=== PATIENT | male | born 1930 | race African-American/Black ===

== ENCOUNTER 2018-01-17 10:38 | Observation (INO) ==
[2018-01-17] MEDS ORDERED: Aspirin 81 MG TAB.CHEW PO ONE (11:12)
[2018-01-17] MEDS ORDERED: GI Cocktail 40 ML EACH PO ONE (11:12)
--- NOTE | 2018-01-17 11:44 | Emergency Department Note ---
Disposition Clinical Impression: Chest pressure, Dyspnea, Hypertensive urgency Disposition: Admitted As Inpatient Condition: Fair Referrals: Christy Cotto, POST OFFICE CLERK [Primary Care Provider] - Forms: ED Satisfaction Letter Time of Disposition: 12:41 (OBSV) SOB HPI - General Chief Complaint: ED Shortness of Breath/Dyspnea Stated Complaint: SOB Time Seen by Provider: 01/17/18 10:43 Source: patient Mode of arrival: ambulatory Limitations: no limitations Nursing Notes Reviewed: Yes Vital Signs Reviewed: Yes - History of Present Illness 87-year-old -Prydeinig male who presents to the emergency room his had increasing shortness of breath. He has had no blurred vision double vision or loss of vision patient's times feels like he is choking on things thinks maybe gastrointestinal reflux patient denies any calf pain swelling edema noted he denies any rashes or lesions he denies numbness tingling weakness nothing makes it better nothing makes it worse she denies though any diaphoresis or radiation up into the neck or chest when these events occur patient does not feel like he is smothering or drowning in his had no recent weight gain Pt Subjective Complaint: shortness of breath Onset (ago): Just WOUND NURSE Severity: mild, now resolved Consistency/Duration: intermittent, now resolved Improves with: nothing Worsens with: nothing Associated symptoms: Reports: orthopnea. Denies: chest pain, pain with inspiration, fever, cough, wheezing, sputum production, lower extremity pain, polyuria, polydipsia, parasthesias, palpitations, hemoptysis, diaphoresis, nausea/vomiting, syncope, abdominal pain, sense of impending doom Treatment prior to arrival: none Cough present: No Sputum production: No - Related Data Home Medications Medication Instructions Recorded Confirmed Propranolol HCl 40 mg PO TID 09/01/16 01/08/17 Ranitidine HCl [Acid Metal Molder] 150 mg PO HS 09/01/16 01/08/17 Aspirin [Lo-Dose Aspirin EC] 81 mg PO DAILY 01/17/18 01/17/18 Allergies Allergy/AdvReac Type Severity Reaction Status Date / Time No Known Allergies Allergy Verified 01/08/17 11:46 All systems ED: reviewed and negative except as stated. Review of Systems: As Per HPI Constitutional: Denies: fever, chills, weakness Eyes: Denies: eye pain, eye discharge ENT ED: Denies: ear pain, throat pain, dental pain Cardiovascular: Reports: dyspnea on exertion. Denies: chest pain, palpitations , syncope Respiratory: Reports: dyspnea. Denies: wheezes Gastrointestinal: Denies: abdominal pain, nausea, vomiting Genitourinary: Denies: urgency, dysuria, genital lesions Musculoskeletal: Denies: back pain, neck pain Integumentary: Denies: rash, abrasion Neurological: Denies: headache Psychiatric: Denies: anxiety Endocrine: Denies: fatigue Hematological/Lymphatic: Denies: easy bleeding Allergic/Immunologic: Denies: facial swelling Past Medical History - Past Medical History Attestation: Yes The following information was validated with the patient. Source: patient, old records reviewed, nursing notes reviewed Medical history: Reports: arthritis, hyperlipidemia, hypertension, renal disease Psychiatric history: Reports: no psych history - Social History Smoking Status: Never smoker Smokeless Tobacco Status: No Alcohol use: Reports: none Drug use: Reports: none Physical Exam - General Limitations: no limitations General appearance: alert, in no apparent distress - Head Head exam: atraumatic, normocephalic, normal inspection - Eye Eye exam: Present: normal appearance, PERRL, EOMI, other (Swollen duct medial left eye) - ENT ENT exam: normal exam, normal oropharynx, mucous membranes moist, TM's normal bilaterally, normal external ear exam - Neck Neck exam: Present: normal inspection, full ROM, trachea midline. Absent: tenderness, meningismus, lymphadenopathy - Chest Chest inspection: Present: normal inspection, symmetric chest wall rise - Respiratory Respiratory exam: Present: normal lung sounds bilaterally. Absent: wheezes, prolonged expiratory phase - Cardiovascular Cardiovascular exam: Present: regular rate, normal rhythm, normal heart sounds - Abdominal Exam Abdominal exam: Present: soft, Non-Tender, normal bowel sounds. Absent: mass, pulsatile mass - Expanded Upper Extremity Exam Shoulder exam: Present: normal inspection, full ROM Arm exam: Present: normal inspection, full ROM Elbow exam: Present: normal inspection, full ROM Forearm/Wrist exam: Present: normal inspection, full ROM Hand exam: Present: normal inspection, full ROM Vascular exam: Normal: capillary refill, radial pulse - Expanded Lower Extremity Exam Hip/Pelvis exam: Present: normal inspection, full ROM Upper leg exam: Present: normal inspection, full ROM Knee exam: Present: normal inspection, full ROM Lower leg exam: Present: normal inspection, full ROM Ankle exam: Present: normal inspection, full ROM Foot/toe exam: Present: normal inspection, full ROM Neurovascular/Tendon exam: Present: normal capillary refill, normal fine/light touch. Absent: motor deficit, sensory deficit, tendon deficit Gait: observed and normal - Back Exam Back exam: Present: normal inspection, full ROM. Absent: muscle spasm - Neurological Exam Neurological exam: Present: alert, oriented X3, CN II-XII intact, normal gait - Psychiatric Psychiatric exam: Present: normal affect, normal mood - Skin Skin exam: Present: warm, dry, intact, normal color Course Course Narrative: Patient seen and examined the GI cocktail and aspirin awaiting laboratory results chest x-ray is been reviewed EKGs been reviewed - Reevaluation(s) Reevaluation #1: Patient received a GI cocktail on Catapres for his blood pressure patient is resting comfortably at this time and grandson at the bed I did talk to Dr. Sims about observation status for serial enzyme rule out at the request Dr. Sims I did speak to the patient about having to wait for possible stress test they understand and they were okay with this plan if that he needs to be transferred for a heart catheter during the course of the evening and if the enzymes started to go up he was comfortable with this plan also patient be admitted for observation status here Vital Signs Temperature 97.9 F 01/17/18 10:47 Pulse Rate 59 01/17/18 10:47 Respiratory Rate 18 01/17/18 10:47 Blood Pressure 181/91 01/17/18 10:47 O2 Sat by Pulse Oximetry 99 01/17/18 10:47 Temperature 97.9 F 01/17/18 10:47 Pulse Rate 57 01/17/18 11:55 Respiratory Rate 16 01/17/18 11:55 Blood Pressure 177/90 01/17/18 11:55 O2 Sat by Pulse Oximetry 99 01/17/18 10:47 Oxygen Delivery Oxygen Delivery Room Air Shortness of Breath/Dyspnea - Differential Diagnosis Likely: acute exacerbation of chronic obstructive airways disease, congestive heart failure - Medical Records Medical records reviewed: Yes I reviewed the patient's medical records. - Lab Data Lab results reviewed: Yes I reviewed the patient's lab results. Result diagrams: 01/17/18 11:00 01/17/18 11:00 Lab Results 05/18/18 05/18/18 05/18/18 Range/Units 11:00 11:00 11:00 WBC 7.2 (4.3-11.1) K/mcL RBC 5.86 H (4.19-5.50) M/mcL Hgb 17.0 H (12.9-16.9) g/dL Hct 49.2 (37.5-50.1) % MCV 84.0 (83.0-100.0) fL MCH 29.0 (28.0-33.3) pg MCHC 34.6 (31.6-35.5) g/dL RDW 13.6 (11.5-14.5) % Plt Count 160 (140-400) K/mcL MPV 9.2 L (9.4-12.4) fL Immature Gran % 0.4 (0-4) % Seg Neutrophils % 58.2 % Lymphocytes % 30.0 % Monocytes % 7.1 % Eosinophils % 3.3 % Basophils % 1.0 % Neutrophils # 4.2 (1.6-8.9) K/mcL Lymphocytes # 2.2 (0.6-4.6) K/mcL Monocytes # 0.5 (0.0-1.3) K/mcL Eosinophils # 0.2 (0.0-0.6) K/mcL Basophils # 0.1 (0.0-0.2) K/mcL PT 12.2 H (9.4-12.1) Seconds INR 1.1 APTT 32.8 (26.0-36.0) Seconds D-Dimer < 211 (0-500) ng/mLFEU Sodium 137 (136-145) mEq/L Potassium 4.1 (3.5-5.1) mEq/L Chloride 99 (98-107) mEq/L Carbon Dioxide 29 (23-29) mEq/L BUN 11 (8-23) mg/dL Creatinine 1.30 (0.70-1.30) mg/dL Est GFR ( Amer) > 60 (> 60) Est GFR (Non-Af Amer) 52 L (> 60) BUN/Creatinine Ratio 8 (6-26) Glucose 83 (70-105) mg/dL Calculated Osmolality 283 (280-300) Calcium 9.9 (8.6-10.3) mg/dL Troponin I < 0.03 (< 0.04) ng/mL - Radiology Data Radiology results reviewed: Yes I reviewed the patient's radiology results. ITS Impressions Chest X-Ray 01/17/18 11:11 IMPRESSION: 1. No active pulmonary disease. D/ / Geo Osborn MD / Geo Osborn MD Interpreting Provider: Geo Osborn MD - EKG Data EKG attestation: Yes I reviewed and interpreted this EKG. EKG results narrative: Sinus bradycardia first-degree AV block rate 59 FL 3/16 progress 90 QT 398 access -49 Critical Care Time Critical Care Time: No
[2018-01-17 11:45] LABS: BUN/Creatinine Ratio 8 (6-26); Blood Urea Nitrogen 11 mg/dL (8-23); Calcium 9.9 mg/dL (8.6-10.3); Carbon Dioxide 29 mEq/L (23-29); Chloride 99 mEq/L (98-107); Glucose 83 mg/dL (70-105); Osmolality,Calculated 283 (280-300); Potassium 4.1 mEq/L (3.5-5.1); Sodium 137 mEq/L (136-145); eGFR For African Americans > 60 (> 60); eGFR For Non-African Americans 52 (> 60)
[2018-01-17 11:50] LABS: Basophils # 0.1 K/mcL (0.0-0.2); Eosinophils # 0.2 K/mcL (0.0-0.6); Eosinophils % 3.3 %; Hematocrit 49.2 % (37.5-50.1); Immature Granulocytes % 0.4 % (0-4); Lymphocytes # 2.2 K/mcL (0.6-4.6); Mean Corpuscular HGB Conc 34.6 g/dL (31.6-35.5); Mean Platelet Volume 9.2 fL (9.4-12.4); Monocytes # 0.5 K/mcL (0.0-1.3); Monocytes % 7.1 %; Neutrophils # 4.2 K/mcL (1.6-8.9); Platelet Count 160 K/mcL (140-400); Red Blood Count 5.86 M/mcL (4.19-5.50); Red Cell Distribution Width 13.6 % (11.5-14.5); Segmented Neutrophils % 58.2 %
[2018-01-17 11:52] LABS: INR 1.1; Prothrombin Time 12.2 Seconds (9.4-12.1); Troponin I < 0.03 ng/mL (< 0.04)
[2018-01-17 11:55] LABS: Activated Partial Thrombo Time 32.8 Seconds (26.0-36.0); D-Dimer < 211 ng/mLFEU (0-500)
[2018-01-17] MEDS ORDERED: cloNIDine HCl 0.1 MG TABLET PO STA (12:21)
--- NOTE | 2018-01-17 12:40 | Internal Med History&Physical ---
Date of Encounter: 01/17/18 Time of Encounter: 13:30 Assessment and Plan (1) Chest pressure Current visit: Yes Status: Acute Discussed he needs a stress test he is aware that we cannot get it here as an inpatient prior authorization as an outpatient in the office is already been started. Also an outpatient referral to cardiology has been initiated to the office chart. Both him and his understand the time length it takes to get these done as an outpatient. They are agreeable to stay here and do these tests on an outpatient basis as long as his troponins are negative. (2) HTN (hypertension) Current visit: Yes Status: Acute He is currently on propranolol that will be continued the ER started clonidine and that did bring down his blood pressure will continue to follow and make adjustments as necessary Qualifiers: Hypertension type: essential hypertension Qualified Code(s): I10 - Essential (primary) hypertension (3) Hyperlipidemia, mixed Current visit: Yes Status: Acute He has not been able to tolerate statins in the past due to muscle pain. (4) GERD (gastroesophageal reflux disease) Current visit: Yes Status: Acute He was given a prescription show an for Zantac he did not take it because it made him feel sick. We will give him a PPI on the past but has not been taking it. Qualifiers: Esophagitis presence: esophagitis presence not specified Qualified Code(s) : K21.9 - Gastro-esophageal reflux disease without esophagitis (5) Renal insufficiency Current visit: Yes Status: Acute Is to be at his baseline He is aware that his kidney function is abnormal. Discussed With him and his (6) Dyspnea Current visit: Yes Status: Acute His chest x-ray is normal we will cycle cardiac enzymes discussed need for a stress test he is aware that I am not able to get a stress test while he is here [place] the orders have been started as an outpatient to get him a non- exercise stress test. As an outpatient we did set him up with cardiology as well. Follow the enzymes and see what it shows. Qualifiers: Dyspnea type: shortness of breath Qualified Code(s): R06.02 - Shortness of breath; R06.00 - Dyspnea, unspecified; R06.01 - Orthopnea (7) Hypertensive urgency Current visit: Yes Status: Acute The ER added clonidine to his home propranolol and that is bring in his blood pressure down. (8) DVT prophylaxis Current visit: Yes Status: Acute Lovenox subcutaneous Internal Medicine - H&P: HPI Chief complaint: sob,chest pressure Admitted From: Home History of present illness: Mr. Lazo is a 87 year old male With a past medical history of uncontrolled hypertension hyperlipidemia and renal insufficiency who presents to the emergency room with chest pain pressure and shortness of breath. He has had some problems with chest pressure with jogging, then chest pressure with walking[place] has not been able to do that for the past 3 weeks due to his chest pain and shortness of breath. This morning his pressure got worse he had elevated blood pressure he was short of breath and that brought him into the emergency room. He currently is chest pain-free he currently is not short of breath. He states he occasionally will have a cough occasionally a lot have a wheeze he is not having any of those now he says occasionally maybe once a week to have some diarrhea he has not had any of that in the past 3 days. He did have some relief of his chest pain with some belching. He did feel dizzy this morning but did not have any syncope he occasionally has a headache but does not currently have one he has not had any recent falls or injuries. His mother and father both had heart disease his father passed when he was 72 and his mother when she was 85. In the emergency room his EKG did not show any acute changes his first set of troponins were negative. His blood pressure was significantly elevated. Past Med Surg Social Fam HX - Past Medical History Medical history: arthritis, hyperlipidemia, hypertension, renal disease Psychiatric history: no psych history - Past Surgical History Surgical History: appendectomy, other (dental surgery) - Social History Smoking Status: Never smoker Smokeless Tobacco Status: No Alcohol use: none Drug use: none - Family History Father Hx Family Cardiac Disorders: Yes (cad) Mother Hx Family Cardiac Disorders: Yes Internal Medicine - H&P: Meds Propranolol HCl 40 mg PO TID 09/01/16 [History] Ranitidine HCl [Acid Non Linear Editor] 150 mg PO HS 09/01/16 [History] Aspirin [Lo-Dose Aspirin EC] 81 mg PO DAILY 01/17/18 [History] 3 Allergy/AdvReac Type Severity Reaction Status Date / Time No Known Allergies Allergy Verified 01/08/17 11:46 All Systems PM: A 10-system review of systems was performed and is negative for pertinent findings except as documented above in the HPI. - Constitutional Constitutional: excessive sweating (Morning with this chest pressure), fatigue, no fever(s), no falls, no lethargy, no night sweats, no weakness, no weight gain , no weight loss - EENT Eyes: no change in vision (But it is not good) - Cardiovascular Cardiovascular ROS IM: chest pain (Pressure), dyspnea, dyspnea on exertion, no lightheadedness, no palpitations, no syncope - Respiratory Respiratory: cough, dyspnea on exertion, wheezing - Gastrointestinal Gastrointestinal: belching, diarrhea (Week but none for the past 3 days), fecal incontinence, no abdominal pain, no constipation, no hematochezia, no melena, no nausea, no vomiting - Genitourinary Genitourinary ROS male: no dysuria, no hematuria - Musculoskeletal Musculoskeletal ROS IM: no limited range of motion, no muscle weakness - Integumentary Integumentary IM: no pruritus, no rash - Neurological Neurological ROS: no abnormal gait - Endocrine Endocrine IM: fatigue - Constitutional Vitals: Temp Pulse Resp BP Pulse Ox 97.9 F 57 16 177/90 99 01/17/18 10:47 01/17/18 11:55 01/17/18 11:55 01/17/18 11:55 01/17/18 10:47 General appearance: Present: A&O X 3, pleasant, no acute distress, obese - Head Head exam: Present: atraumatic, normocephalic - Neck Neck exam general surgery: Present: trachea midline. Absent: lymphadenopathy - Expanded Neck Exam Neck exam: Absent: carotid bruit - Respiratory Respiratory exam: Present: CTAB - Cardiovascular Cardiovascular exam: Present: RRR, +S1, +S2. Absent: systolic murmur - GI/Abdominal GI/Abdominal exam: Present: distended, normal bowel sounds, soft, no peritoneal signs. Absent: tenderness - Extremities Exam Extremities exam: Present: warm. Absent: pedal edema - Skin Skin exam: Present: dry, warm Internal Med - H&P Results - Labs CBC & Chem 7: 01/17/18 11:00 01/17/18 11:00 Labs: Short CBC 01/17/18 Range/Units 11:00 WBC 7.2 (4.3-11.1) K/mcL Hgb 17.0 H (12.9-16.9) g/dL Hct 49.2 (37.5-50.1) % Plt Count 160 (140-400) K/mcL Neutrophils # 4.2 (1.6-8.9) K/mcL BMP 01/17/18 11:00 Sodium 137 Potassium 4.1 Chloride 99 Carbon Dioxide 29 BUN 11 Creatinine 1.30 Glucose 83 Calcium 9.9 Cardiac Enzymes 01/17/18 Range/Units 11:00 Troponin I < 0.03 (< 0.04) ng/mL - Impressions ITS Impressions Chest X-Ray 01/17/18 11:11 IMPRESSION: 1. No active pulmonary disease. D/ / Geo Osborn MD / Goe Osborn MD Interpreting Provider: Geo Osborn MD
[2018-01-17] MEDS ORDERED: *HR* Enoxaparin 30 MG/0.3 ML SYRINGE SQ ONE (12:45)
[2018-01-17] MEDS ORDERED: Naloxone 0.4 MG/ML INJ IVP PRN (13:30)
[2018-01-17] MEDS: cloNIDine HCl 0.1 MG TABLET PO SCH ×2 (15:20→20:43)
[2018-01-17] MEDS ORDERED: MOM Conc 10 ML UD.LIQ PO PRN (21:08)
[2018-01-18] MEDS: cloNIDine HCl 0.1 MG TABLET PO SCH (04:37)
[2018-01-18 05:08] LABS: Basophils % 0.6 %; Eosinophils # 0.2 K/mcL (0.0-0.6); Eosinophils % 3.5 %; Hematocrit 44.8 % (37.5-50.1); Hemoglobin 15.5 g/dL (12.9-16.9); Immature Granulocytes % 0.4 % (0-4); Lymphocytes # 1.5 K/mcL (0.6-4.6); Lymphocytes % 28.1 %; Mean Corpuscular HGB Conc 34.6 g/dL (31.6-35.5); Mean Corpuscular Volume 83.7 fL (83.0-100.0); Mean Platelet Volume 9.2 fL (9.4-12.4); Monocytes # 0.4 K/mcL (0.0-1.3); Monocytes % 7.3 %; Neutrophils # 3.1 K/mcL (1.6-8.9); Platelet Count 128 K/mcL (140-400); Red Blood Count 5.35 M/mcL (4.19-5.50); Red Cell Distribution Width 13.7 % (11.5-14.5); Segmented Neutrophils % 60.1 %
[2018-01-18 05:12] LABS: INR 1.2
[2018-01-18 05:15] LABS: Activated Partial Thrombo Time 33.1 Seconds (26.0-36.0)
[2018-01-18] MEDS ORDERED: *HR* Enoxaparin 30 MG/0.3 ML SYRINGE SQ SCH (06:00)
[2018-01-18] MEDS ORDERED: Aspirin Enteric Coated 81 MG Tablet PO SCH (09:00)
[2018-01-18 11:22] VITALS: BP 153/80
--- NOTE | 2018-01-18 12:12 | Discharge Summary ---
Date of Encounter: 01/18/18 Time of Encounter: 11:50 - Discharge Diagnosis (1) Chest pressure Priority: Primary Status: Acute Comments: He is chest pain-free since the emergency room he has not been short of breath since the emergency room he is being set up for an outpatient stress test he also has in a referral to the escrow agent as an outpatient. He is aware that if he develops any chest pain pressure shortness of breath and he needs to come back to the emergency room immediately and then he will likely be transferred. (2) HTN (hypertension) Priority: Secondary Status: Acute Comments: He was kept on his home propranolol clonidine was added in the emergency room. This will likely still need further adjustment as an outpatient. He was instructed to call the office if they did not come down. Qualifiers: Hypertension type: essential hypertension Qualified Code(s): I10 - Essential (primary) hypertension (3) Hyperlipidemia, mixed Priority: Secondary Status: Acute Comments: He has not been able to tolerate statins in the past (4) GERD (gastroesophageal reflux disease) Priority: Secondary Status: Acute Comments: Omeprazole was started. He did not tolerate rate Zantac at home. If this does not improve we will consider further outpatient workup Qualifiers: Esophagitis presence: esophagitis presence not specified Qualified Code(s) : K21.9 - Gastro-esophageal reflux disease without esophagitis (5) Renal insufficiency Priority: Secondary Status: Acute Comments: Discussed yesterday that he does have some renal insufficiency so is important to control his blood pressure. Will need outpatient follow-up on this. (6) Dyspnea Priority: Secondary Status: Acute Comments: He is being set up for an outpatient stress test. He is not having any shortness of breath currently. Qualifiers: Dyspnea type: shortness of breath Qualified Code(s): R06.02 - Shortness of breath; R06.00 - Dyspnea, unspecified; R06.01 - Orthopnea (7) Hypertensive urgency Priority: Secondary Status: Acute Comments: His blood pressure responded to clonidine that was initiated in the ER and was continued on his home dose of propranolol. He was instructed to follow his blood pressures at least twice a day keep a log of this and bring this with him to his follow-up appointment with Christy Cotto Saturday (8) DVT prophylaxis Priority: Secondary Status: Acute Comments: He was on [facility] course: Mr. Lazo is a 87 year old male Who presented to the emergency room with chest pressure and shortness of breath. He was placed on telemetry he did not have any arrhythmias he did have sinus bradycardia he had 3 negative enzymes. He is currently chest pain-free he is being discharged for further workup as an outpatient and outpatient stress test and cardiology referral have been set up. His blood pressure was elevated medications were added he is going to keep track of his blood pressures and bring in the log to see his nurse practitioner Christy. He also has GERD omeprazole was started he is feeling better today. If not better that will also need outpatient workup he also has renal insufficiency. Discussed with him if that does not improve will need further outpatient workup as well. Discharge discussed with: patient - Time Spent with Patient Total time spent providing and/or coordinating discharge services: - Discharge Medications Prescriptions: cloNIDine HCl [CloNIDine HCl] 0.1 mg PO Q8H #90 tablet Omeprazole [PriLOSEC] 20 mg PO DAILY@0630 #30 capsule. Home Medications: Propranolol HCl 40 mg PO TID 09/01/16 [History] Aspirin [Lo-Dose Aspirin EC] 81 mg PO DAILY 01/17/18 [History] Omeprazole [PriLOSEC] 20 mg PO DAILY@0630 #30 capsule. 01/18/18 [Rx] cloNIDine HCl [CloNIDine HCl] 0.1 mg PO Q8H #90 tablet 01/18/18 [Rx] Allergies/Adverse Reactions: 3 Allergy/AdvReac Type Severity Reaction Status Date / Time No Known Allergies Allergy Verified 01/08/17 11:46 Date of admission: 01/17/18 12:49 Primary care physician: Christy Cotto CNP - Constitutional Vitals: Temp Pulse Resp BP Pulse Ox 98.1 F 54 16 153/80 94 01/18/18 11:20 01/18/18 11:20 01/18/18 11:20 01/18/18 11:20 01/18/18 11:20 General appearance: Present: A&O X 3, pleasant, no acute distress, obese - Head Head exam: Present: atraumatic, normocephalic - Neck Neck exam general surgery: Present: supple, trachea midline. Absent: full ROM, lymphadenopathy - Respiratory Respiratory exam: Present: CTAB - Cardiovascular Cardiovascular exam: Present: RRR, +S1, +S2. Absent: systolic murmur - GI/Abdominal GI/Abdominal exam: Present: normal bowel sounds, soft, no peritoneal signs. Absent: distended, tenderness - Extremities Exam Extremities exam: Present: warm. Absent: cyanotic, mottling, pedal edema - Skin Skin exam: Present: dry, warm - Patient Status Disposition: Home, Self-Care Condition: Fair Functional capacity at discharge: independent ambulation Overall status at discharge: patient is back to baseline - Discharge Instructions Instructions: Chronic Hypertension (DC) Follow Up With: Christy Cotto CNP [Primary Care Provider] - 01/22/18 9:30 am Additional Instructions: Any chest pain, pressure, tightness or shortness of breath, go to the ER immediately. Keep track of your blood pressures and bring them to your follow up appointment - Diet and Activity Diet: low fat, low cholesterol, low salt diet
--- NOTE | 2018-01-20 14:46 | Electrocardiograph Report ---
[place] [id number] Test Date: 2018-01-17 Pat Name: Carmen Lazo Department: 2000 Room: 116 Gender: M Production Line Technician: : [id number] Requested By: Tanya Flynn Order Number: [id number] Reading MD: Jose Antonio Bueno Measurements Intervals [place] Rate: 59 P: 48 CT: 316 QRS: -49 QRSD: 90 T: 64 QT: 398 QTc: 397 Interpretive Statements SINUS BRADYCARDIA WITH FIRST DEGREE AV BLOCK INFERIOR MYOCARDIAL INFARCTION, PROBABLY OLD Electronically Signed On 01-20-2018 14:45:12 EDT by Jose Antonio Bueno
== END 2018-01-18 13:48 | disposition home or self-care (01) ==
LOC: EMEROOGRE 10:38 → INPGRE 10:38
PROVIDERS: ADMIT Family Medicine; ATTEND Family Medicine